=== PATIENT | male | born 1940 | race Two or more races ===

== ENCOUNTER 2020-10-20 07:39 | Day surgery (SDC) | payer OTHER | END 2020-10-20 12:30 | disposition home or self-care (01) | LOC: AMB-ENDOS 07:39 | PROVIDERS: ATTEND Surgery | DX: D12.4 Benign neoplasm of descending colon (principal); D12.5 Benign neoplasm of sigmoid colon; Z20.828 Contact with and (suspected) exposure to other viral communicable diseases; K62.7 Radiation proctitis ==

== ENCOUNTER 2020-11-06 09:10 | Outpatient (CLI) | payer OTHER | END 2020-11-06 09:20 | disposition home or self-care (01) | LOC: MRI 09:10 | PROVIDERS: ATTEND Surgery | DX: C20 Malignant neoplasm of rectum (principal); R97.0 Elevated carcinoembryonic antigen [CEA]; C78.7 Secondary malignant neoplasm of liver and intrahepatic bile duct | CPT/HCPCS: 72197; 74183; A9575 ==

== ENCOUNTER 2021-01-07 09:30 | Inpatient (IN) | payer OTHER ==
[~2021-01-07] VITALS: Ht 170.2 cm; Wt 68.5 kg
[2021-01-07] MEDS ORDERED: ZIAC 2.5-6.251 EACH PO (13:59)
[2021-01-07] MEDS ORDERED: JANUVIA100 MG PO (14:00)
[2021-01-07] MEDS ORDERED: SYNTHROID88 MCG PO (14:00)
[2021-01-07] MEDS ORDERED: OMEGA 3-6-9 11200 M1 PO (14:01)
[2021-01-07] MEDS ORDERED: GLIM PO (14:01)
[2021-01-07] MEDS ORDERED: VITAMIN C PO ×2 (14:01→14:02)
[2021-01-14] MEDS ORDERED: MIRALAX510 GM (15:53)
[2021-01-14] MEDS ORDERED: VITAMIN C100 MG (15:53)
[2021-01-14] MEDS ORDERED: DULCOLAX5 MG (15:53)
[2021-01-14] MEDS ORDERED: GLIMEPIRIDE1 M1 (15:55)
[2021-01-14] MEDS ORDERED: VITAMIN D310 MC4 (15:56)
[2021-01-18] MEDS ORDERED: HYOSCYAMINE0.125 M1 SL (10:08)
[2021-01-18] MEDS ORDERED: OXYC1TAB9 PO (10:08)
[2021-01-18] MEDS ORDERED: PEPCID AC20 MG PO (10:09)
== END 2021-01-18 11:37 | disposition home or self-care (01) | DRG 330 ==
LOC: SURG 01-14 08:03 → O/R 01-14 08:03 → SURH 01-14 09:30 → SURG 01-14 16:09
PROVIDERS: ADMIT Surgery; ATTEND Surgery
PROC: 0DTN4ZZ Resection of Sigmoid Colon, Percutaneous Endoscopic Approach (ICD-10-PCS; 2021-01-14)
PROC: 0DTP4ZZ Resection of Rectum, Percutaneous Endoscopic Approach (ICD-10-PCS; 2021-01-14)
PROC: 07BC4ZZ Excision of Pelvis Lymphatic, Percutaneous Endoscopic Approach (ICD-10-PCS; 2021-01-14)
PROC: 0D1B4Z4 Bypass Ileum to Cutaneous, Percutaneous Endoscopic Approach (ICD-10-PCS; principal; 2021-01-14 11:30)
DX: C19 Malignant neoplasm of rectosigmoid junction (principal); C78.7 Secondary malignant neoplasm of liver and intrahepatic bile duct; D50.0 Iron deficiency anemia secondary to blood loss (chronic); I11.9 Hypertensive heart disease without heart failure; E11.9 Type 2 diabetes mellitus without complications; E78.5 Hyperlipidemia, unspecified; E03.9 Hypothyroidism, unspecified; R97.0 Elevated carcinoembryonic antigen [CEA]

== ENCOUNTER 2021-03-11 11:01 | Outpatient (CLI) | payer OTHER ==
[~2021-03-11 11:01] MED LIST: DULCOLAX5 MG; GLIM PO; GLIMEPIRIDE1 M1; HYOSCYAMINE0.125 M1 SL; JANUVIA100 MG PO; MIRALAX510 GM; OMEGA 3-6-9 11200 M1 PO; OXYC1TAB9 PO; PEPCID AC20 MG PO; SYNTHROID88 MCG PO; VITAMIN C PO; VITAMIN C100 MG; VITAMIN D310 MC4; ZIAC 2.5-6.251 EACH PO
== END 2021-03-11 11:21 | disposition home or self-care (01) ==
LOC: TOM 11:01
DX: C20 Malignant neoplasm of rectum (principal); C78.7 Secondary malignant neoplasm of liver and intrahepatic bile duct; Z51.11 Encounter for antineoplastic chemotherapy

== ENCOUNTER 2021-04-28 07:43 | Outpatient (CLI) | payer OTHER ==
[2021-06-09] MEDS ORDERED: CLARITHROMYCIN500 M1 PO (10:15)
[2021-06-09] MEDS ORDERED: [UNRECOGNIZED DRUG - OTHER] PO (10:15)
== END 2021-04-28 07:51 | disposition home or self-care (01) ==
LOC: RX STUDY 07:43
PROVIDERS: ATTEND Surgery
DX: C20 Malignant neoplasm of rectum (principal); R97.0 Elevated carcinoembryonic antigen [CEA]; C78.7 Secondary malignant neoplasm of liver and intrahepatic bile duct; Z93.2 Ileostomy status

== ENCOUNTER 2021-06-09 10:15 | Inpatient (IN) | payer OTHER ==
[~2021-06-09] VITALS: Ht 170.2 cm; Wt 59.9 kg
[~2021-06-09 10:15] MED LIST changes: +CLARITHROMYCIN500 M1 PO; +[UNRECOGNIZED DRUG - OTHER] PO
[2021-06-09] MEDS ORDERED: ACID REDUCER20 M1 PO (10:16)
[2021-06-09] MEDS ORDERED: NASAL MIST126 ML (10:16)
[2021-06-14] MEDS ORDERED: OMEPRAZOLE20 MG (07:55)
[2021-06-14] MEDS ORDERED: GLIMEPIRIDE4 M1 (07:56)
[2021-06-14] MEDS ORDERED: INTESTINEX680 M1 (07:56)
[2021-06-14] MEDS ORDERED: AMOXICILLIN500 MG (07:56)
[2021-06-14] MEDS ORDERED: METRONIDAZOLE500 MG (07:56)
[2021-06-14] MEDS ORDERED: PANTOPRAZOLE SO40 MG (07:56)
[2021-06-17] MEDS ORDERED: HYOSCYAMINE0.125 M1 SL (11:26)
[2021-06-17] MEDS ORDERED: PROTONIX40 MG PO (11:27)
[2021-06-17] MEDS ORDERED: ULTRACET PO (11:28)
== END 2021-06-17 13:54 | disposition home or self-care (01) | DRG 348 ==
LOC: SURH 06-14 05:33 → O/R 06-14 05:33 → SURH 06-14 10:15
PROVIDERS: ADMIT Surgery; ATTEND Surgery
PROC: 0DBB4ZZ Excision of Ileum, Percutaneous Endoscopic Approach (ICD-10-PCS; principal; 2021-06-14 13:45)
DX: Z43.2 Encounter for attention to ileostomy (principal); C20 Malignant neoplasm of rectum; I11.9 Hypertensive heart disease without heart failure; E03.9 Hypothyroidism, unspecified; E78.00 Pure hypercholesterolemia, unspecified

== ENCOUNTER 2022-03-01 08:05 | Outpatient (CLI) | payer OTHER ==
[~2022-03-01 08:05] MED LIST changes: +ACID REDUCER20 M1 PO; +AMOXICILLIN500 MG; +GLIMEPIRIDE4 M1; +INTESTINEX680 M1; +METRONIDAZOLE500 MG; +NASAL MIST126 ML; +OMEPRAZOLE20 MG; +PANTOPRAZOLE SO40 MG; +PROTONIX40 MG PO; +ULTRACET PO
== END 2022-03-01 08:06 | disposition home or self-care (01) ==
LOC: NUCLEAR 08:05
PROVIDERS: ATTEND Surgery
DX: C20 Malignant neoplasm of rectum (principal); C78.7 Secondary malignant neoplasm of liver and intrahepatic bile duct; R97.0 Elevated carcinoembryonic antigen [CEA]; Z93.2 Ileostomy status
CPT/HCPCS: 78812; A9552

== ENCOUNTER → 2023-03-01 | Outpatient (CLI) | payer OTHER | END | disposition home or self-care (01) | LOC: NUCLEAR 07:56 | DX: C20 Malignant neoplasm of rectum (principal); C78.7 Secondary malignant neoplasm of liver and intrahepatic bile duct; R97.0 Elevated carcinoembryonic antigen [CEA]; Z93.2 Ileostomy status | CPT/HCPCS: 78815; A9552 ==

== ENCOUNTER 2023-05-18 07:56 | Inpatient (IN) | payer OTHER ==
[~2023-05-18] VITALS: Ht 167.6 cm; Wt 51.3 kg
--- NOTE | 2023-05-18 08:48 | NUR ---
SE RECIBE PACIENTE ALERTA Y ORIENTADO X 3, AMBULANDO CON ASISTENCIA DE [place] Y RESPONDIENDO A ESTIMULOS. PACIENTE Y FAMILIAR VERBALIZAN QUE ES REFERIDO POR DR VASQUEZ POR HEMOGLOBINA BAJA AL [place] SE PRESENTA ASINTOMATICO ANDRIY REFIERE. S PROVEE LABORATORIOS Y REFERIDO MEDICO JUNTO CON HISTORIAL DE PTE A DR PEDRO. SE UBICA EN [place] #7. PTE CON FISTULA EN MANDIBULA LT CON VENDAJES LIMPIOS Y SECOS. LA CUAL SE TRATA CON HIPERBARICA.
--- NOTE | 2023-05-18 09:02 | NUR ---
SE EDUCA PACIENTES SOBRE EL [place] MEDICO Y ANNA REFIERE ENTENDER. SE CANALIZA Y SE COLOCA IVFS. SE JOSE ANGEL MUESTRAS DE LABORATORIO Y SE ENTREGA U/A. SE REALIZA EKG Y SE PRESENTA AL DR. WHITEHEAD. PENDIENTE A PLACA PORTABLE
--- NOTE | 2023-05-18 09:04 | NUR ---
SE ENTREGA CONTRASTE PO Y SE ORIENTA SOBRE DARCI INNA Y ANNA REFIERE ENTENDER
--- NOTE | 2023-05-18 10:03 | NUR ---
SE REQUISA 2 UNIDADES DE PRBC`S Y PACIENTE FIRMA CONSENTIMIENTO DE TRANSFUCION. PERSONAL DE [place] INDICA QUE PACIENTE NO TIENE RECORD PREVIO. SE MILVIA COPIA DE LA REQUISICION DEL PACIENTE.
[2023-05-19] MEDS ORDERED: MESALAMINE800 MG (13:17)
[2023-06-16] MEDS ORDERED: TRAM1TAB98 PO (08:08)
[2023-06-16] MEDS ORDERED: GLIMEPIRIDE4 M1 PO (12:30)
[2023-06-16] MEDS ORDERED: APETIGEN P12.5 MG/15 PO (12:30)
[2023-06-16] MEDS ORDERED: DOXYCYCLINE HY100 M2 PO (12:30)
[2023-06-16] MEDS ORDERED: PEPCID AC20 MG PO (12:30)
[2023-06-16] MEDS ORDERED: SYNTHROID88 MCG PO (12:30)
[2023-06-16] MEDS ORDERED: GABAPENTIN300 MG PO (12:30)
[2023-06-16] MEDS ORDERED: JANUVIA100 MG PO (12:30)
[2023-06-16] MEDS ORDERED: ZIAC 2.5-6.251 EACH PO (12:30)
[2023-06-16] MEDS ORDERED: INTESTINEX680 M1 PO (12:30)
[2023-06-16] MEDS ORDERED: HYOSCYAMINE0.125 M1 SL (12:30)
[2023-06-16] MEDS ORDERED: PRE PROTEIN1 EACH PO (12:30)
[2023-06-16] MEDS ORDERED: ABANEU-SL TABL1 EACH SL (12:30)
[2023-06-16] MEDS ORDERED: FUSION PLUS CA1 EACH PO (12:30)
== END 2023-06-16 15:22 | disposition home or self-care (01) | DRG 329 ==
LOC: ER 07:56 → SEC-K 13:06 → MEDI 13:06
PROVIDERS: Emergency Medicine; Internal Medicine; Internal Medicine Infectious Disease; Surgery; ADMIT Internal Medicine Geriatric Medicine; ATTEND Internal Medicine Geriatric Medicine
PROC: 30233N1 Transfusion of Nonautologous Red Blood Cells into Peripheral Vein, Percutaneous Approach (ICD-10-PCS; 2023-05-18)
PROC: BW211ZZ Computerized Tomography (CT Scan) of Abdomen and Pelvis using Low Osmolar Contrast (ICD-10-PCS; 2023-05-18)
PROC: 8E0ZXY6 Isolation (ICD-10-PCS; 2023-05-21)
PROC: BW3GYZZ Magnetic Resonance Imaging (MRI) of Pelvic Region using Other Contrast (ICD-10-PCS; 2023-05-22)
PROC: 02HV33Z Insertion of Infusion Device into Superior Vena Cava, Percutaneous Approach (ICD-10-PCS; 2023-05-25)
PROC: 0W9H30Z Drainage of Retroperitoneum with Drainage Device, Percutaneous Approach (ICD-10-PCS; 2023-05-25)
PROC: BW3GYZZ Magnetic Resonance Imaging (MRI) of Pelvic Region using Other Contrast (ICD-10-PCS; 2023-05-31)
PROC: 0DBP8ZX Excision of Rectum, Via Natural or Artificial Opening Endoscopic, Diagnostic (ICD-10-PCS; 2023-06-05)
PROC: 30243N1 Transfusion of Nonautologous Red Blood Cells into Central Vein, Percutaneous Approach (ICD-10-PCS; 2023-06-10)
PROC: 0D1L4Z4 Bypass Transverse Colon to Cutaneous, Percutaneous Endoscopic Approach (ICD-10-PCS; principal; 2023-06-12 20:30)
DX: K91.89 Other postprocedural complications and disorders of digestive system (principal); K68.19 Other retroperitoneal abscess; K61.2 Anorectal abscess; K61.4 Intrasphincteric abscess; C20 Malignant neoplasm of rectum; C41.0 Malignant neoplasm of bones of skull and face; K51.811 Other ulcerative colitis with rectal bleeding; B37.49 Other urogenital candidiasis; L98.418 Non-pressure chronic ulcer of buttock with other specified severity; S01.402D Unspecified open wound of left cheek and temporomandibular area, subsequent encounter; B95.62 Methicillin resistant Staphylococcus aureus infection as the cause of diseases classified elsewhere; D50.0 Iron deficiency anemia secondary to blood loss (chronic); D63.0 Anemia in neoplastic disease; E11.65 Type 2 diabetes mellitus with hyperglycemia; E03.9 Hypothyroidism, unspecified; I11.9 Hypertensive heart disease without heart failure; Z90.49 Acquired absence of other specified parts of digestive tract; Z79.84 Long term (current) use of oral hypoglycemic drugs
CPT/HCPCS: 72196; 72198